=== PATIENT | female | born 1945 ===

== ENCOUNTER 2017-07-29 09:08 | Outpatient (CLI) | payer OTHER ==
[~2017-07-29] VITALS: Ht 152.4 cm; Wt 69.9 kg
== END 2017-07-29 09:20 | disposition home or self-care (01) ==
LOC: OFIC 805 09:08
DX: D33.3 Benign neoplasm of cranial nerves (principal); H90.3 Sensorineural hearing loss, bilateral; H61.23 Impacted cerumen, bilateral

== ENCOUNTER 2017-08-05 08:17 | Outpatient (CLI) | payer OTHER ==
[~2017-08-05] VITALS: Ht 152.4 cm; Wt 69.9 kg
== END 2017-08-05 08:45 | disposition home or self-care (01) ==
LOC: OFIC 805 08:17
DX: H90.3 Sensorineural hearing loss, bilateral (principal); J31.0 Chronic rhinitis; J34.2 Deviated nasal septum; H69.82 Other specified disorders of Eustachian tube, left ear

== ENCOUNTER 2017-08-26 07:38 | Outpatient (CLI) | payer OTHER ==
[~2017-08-26] VITALS: Ht 152.4 cm; Wt 69.9 kg
== END 2017-08-26 08:10 | disposition home or self-care (01) ==
LOC: OFIC 805 07:38
DX: H90.3 Sensorineural hearing loss, bilateral (principal); J31.0 Chronic rhinitis; H70.12 Chronic mastoiditis, left ear; H69.82 Other specified disorders of Eustachian tube, left ear

== ENCOUNTER 2020-11-14 09:09 | Outpatient (CLI) | payer OTHER | END 2020-11-14 16:17 | disposition home or self-care (01) | LOC: LAB 09:09 | PROVIDERS: ATTEND Internal Medicine Hematology & Oncology | DX: D68.61 Antiphospholipid syndrome (principal); D50.8 Other iron deficiency anemias; I10 Essential (primary) hypertension; R74.02 Elevation of levels of lactic acid dehydrogenase [LDH]; K76.89 Other specified diseases of liver; D51.8 Other vitamin B12 deficiency anemias; D51.1 Vitamin B12 deficiency anemia due to selective vitamin B12 malabsorption with proteinuria; E72.12 Methylenetetrahydrofolate reductase deficiency; D51.3 Other dietary vitamin B12 deficiency anemia; I73.89 Other specified peripheral vascular diseases ==